=== PATIENT | female | born 1995 | race Caucasian/White ===

== ENCOUNTER 2022-01-09 11:02 | Emergency (ER) | payer OTHER ==
[~2022-01-09] VITALS: Ht 162.6 cm; Wt 54.9 kg
--- NOTE | 2022-01-09 11:08 | NUR ---
[id number], WITHDRAWAL FROM [facility]. LAST USE YESTERDAY. PT IS A&OX1, TALKING TO HERSELF. PT ATTCHED TO MONITOR. WARM BLANKET PROVIDED FOR COMFORT.
[2022-01-09] MEDS ORDERED: LORAZEPAM INJ 2 MG/ML VIAL ONE (11:28)
[2022-01-09] MEDS ORDERED: LORAZEPAM INJ 2 MG/ML VIAL IV ONE (11:30)
[2022-01-09] MEDS ORDERED: IV NS 0.9% 1,000 ML BAG IV ONE ×2 (11:30→15:30)
--- NOTE | 2022-01-09 11:37 | NUR ---
PT REFUSED IV TO BE INSERTED
--- NOTE | 2022-01-09 12:03 | NUR ---
PT STILL REFUSED BLOOD DRAW.
[2022-01-09] MEDS ORDERED: LORAZEPAM INJ 2 MG/ML VIAL IM ONE (12:30)
[2022-01-09 13:37] LABS: BASOPHILS % (AUTO) 0.3 % (0.0-2.0); EOSINOPHILS % (AUTO) 0.3 % (0.0-6.0); HEMATOCRIT 40 % (33-45); LYMPHOCYTES # (AUTO) 2.9 K/uL (0.8-4.8); LYMPHOCYTES % (AUTO) 33.5 % (20.0-44.0); MEAN CORPUSCULAR HGB CONC 33 g/dl (31.0-36.0); MEAN CORPUSCULAR VOLUME 89 fL (82-100); MONOCYTES # (AUTO) 0.7 K/uL (0.1-1.30); MONOCYTES % (AUTO) 7.7 % (2.0-12.0); NEUTROPHILS % (AUTO) 58.2 % (43.0-81.0); PLATELET COUNT (AUTO) 231 K/uL (150-450); RED BLOOD CELL COUNT(AUTO) 4.43 MIL/uL (4.0-5.2); WHITE BLOOD COUNT (AUTO) 8.5 K/uL (4.3-11.0)
[2022-01-09 14:42] LABS: ALANINE AMINOTRANSFERASE 31 U/L (12-78); ALBUMIN 3.7 g/dL (3.4-5.0); ALKALINE PHOSPHATASE 125 U/L (46-116); ASPARTATE AMINOTRANSFERASE 35 U/L (15-37); BILIRUBIN,DIRECT 0.2 mg/dL (0.0-0.2); CALCIUM, SERUM 8.8 mg/dL (8.5-10.1); CARBON DIOXIDE 15 mmol/L (21-32); CHLORIDE 102 mmol/L (98-107); CREATININE 1.2 mg/dL (0.6-1.3); GLUCOSE 98 mg/dL (74-106); SODIUM SERUM 139 mmol/L (136-145); TOTAL PROTEIN, SERUM 7.4 g/dL (6.4-8.2); UREA NITROGEN, BLOOD 18 mg/dL (7-18)
[2022-01-09 14:46] LABS: ACETAMINOPHEN < 0 ug/ml (10-30); ALCOHOL, BLOOD < 3 mg/dL (0-0)
--- NOTE | 2022-01-09 15:22 | NUR ---
URINE COLLECTED AND SENT
[2022-01-09] MEDS ORDERED: POTASSIUM CHLORIDE 20 MEQ TAB.PRT.SR PO ONE ×2 (15:30→20:34)
--- NOTE | 2022-01-09 20:41 | NUR ---
PT IS RESTING COMFORTABLY IN BED, WARM BLANKETS PROVIDED. WILL CONTINUE TO MONITOR
--- NOTE | 2022-01-09 22:42 | NUR ---
PT IS ASLEEP BUT EASILY AROUSABLE, DENIES ANY PAIN AT THIS TIME. WILL CONTINUE TO MONITOR.
--- NOTE | 2022-01-10 02:50 | NUR ---
PT IN BED RESTING. EASILY ARROUSABLE. NAD NOTED
--- NOTE | 2022-01-10 07:32 | NUR ---
Patient given written and verbal discharge instructions. Patient verbalizes understanding of instructions. Patient is ambulatory with steady gait. Refuses offer of penitentiary placement. Patient given list of available shelters in surrounding area.
[2022-01-10 07:53] VITALS: BP 112/78
== END 2022-01-10 07:53 | disposition home or self-care (01) ==
LOC: ER 11:05
DX: F15.10 Other stimulant abuse, uncomplicated (principal); F29 Unspecified psychosis not due to a substance or known physiological condition; E87.6 Hypokalemia; Z88.8 Allergy status to other drugs, medicaments and biological substances
CPT/HCPCS: 36415; 80048; 80076; 80143; 80307; 80320; 83735; 85025; 93005; 96372; 99285; J2060; G0480; J7030